=== PATIENT | female | born 1975 | race Caucasian/White ===

== ENCOUNTER 2018-01-09 14:39 | Emergency (ER) | payer OTHER ==
[~2018-01-09] VITALS: Ht 162.6 cm; Wt 81.7 kg
[~2018-01-09 14:39] MED LIST: AMOXICILLIN 50500 MG PO; HYDROCODONE-AP1 EAC6 PO; IBUPROFEN 800800 MG PO; NORCO 5-325 TA1 EACH PO; TRAMADOL 50 MG50 MG PO
[2018-01-09] MEDS ORDERED: PRENATAL PO (14:53)
[2018-01-09 15:41] LABS: ABSOLUTE EOSINOPHILS 0.1 thou/uL (0.0-0.7); ABSOLUTE LYMPHOCYTES 2.4 thou/uL (0.8-5.3); ABSOLUTE MONOCYTES 0.9 thou/uL (0.0-1.2); ABSOLUTE NEUTROPHILS 5.3 thou/uL (1.6-8.1); BASOPHILS 0.4 %; EOSINOPHILS 1.2 %; HEMATOCRIT 40.1 % (37.0-47.0); HEMOGLOBIN 12.8 gm/dL (12.0-15.0); LYMPHOCYTES 27.8 %; MCH 26.9 pg (26.0-34.0); MONOCYTES 10.2 %; NUCLEATED RBCS 0 /100WBC; PLATELET COUNT* 385 thou/uL (150-400); POLYS 60.4 %; RBC 4.77 mil/uL (4.20-5.00); RDW-CV 17.4 % (10.5-14.5); WBC 8.8 thou/uL (4.0-11.0)
[2018-01-09 15:49] LABS: CALCIUM 8.6 mg/dL (8.5-10.1); CREATININE 0.7 mg/dL (0.6-1.3); POTASSIUM 3.6 mmol/L (3.5-5.1)
[2018-01-09 15:55] LABS: ALBUMIN 3.2 g/dL (3.4-5.0); TOTAL BILIRUBIN 0.1 mg/dL (<0.1-1.0); TOTAL PROTEIN 7.4 g/dL (6.4-8.2)
[2018-01-09] MEDS ORDERED: NABUMETONE 750750 M1 PO (16:34)
[2018-01-09] MEDS ORDERED: ZANAFLEX4 MG PO (16:34)
[2018-01-09 16:48] VITALS: BP 141/88
== END 2018-01-09 16:50 | disposition home or self-care (01) ==
LOC: M.ERS 14:39
PROVIDERS: Nurse Practitioner Family
DX: S39.012A Strain of muscle, fascia and tendon of lower back, initial encounter (principal); S00.81XA Abrasion of other part of head, initial encounter; N93.9 Abnormal uterine and vaginal bleeding, unspecified; F17.210 Nicotine dependence, cigarettes, uncomplicated; Y08.89XA Assault by other specified means, initial encounter; Y93.89 Activity, other specified; Y92.89 Other specified places as the place of occurrence of the external cause; Y99.2 Volunteer activity

== ENCOUNTER 2018-08-01 02:23 | Emergency (ER) | payer OTHER ==
[~2018-08-01] VITALS: Ht 162.6 cm; Wt 81.7 kg
[~2018-08-01 02:23] MED LIST changes: +NABUMETONE 750750 M1 PO; +PRENATAL PO; +ZANAFLEX4 MG PO
[2018-08-01] MEDS ORDERED: PREDNISONE 10 M10 MG PO (02:32)
[2018-08-01] MEDS ORDERED: AMOXICILLIN 50500 M1 PO (03:38)
[2018-08-01] MEDS ORDERED: MEDROLDOSEPACK PO (03:38)
[2018-08-01] MEDS ORDERED: IPRAT-ALBUT 0.5-3 ML INH (03:38)
[2018-08-01] MEDS ORDERED: NEBULIZER MISCELL (03:43)
[2018-08-01 03:50] VITALS: BP 140/89
== END 2018-08-01 03:50 | disposition home or self-care (01) ==
LOC: M.ERS 02:23
DX: J45.901 Unspecified asthma with (acute) exacerbation (principal); F17.200 Nicotine dependence, unspecified, uncomplicated; Z98.890 Other specified postprocedural states